=== PATIENT | female | born 1935 | race Caucasian/White ===

== ENCOUNTER 2019-06-08 18:51 | Inpatient (IN) | payer MEDICARE, OTHER ==
[~2019-06-08] VITALS: Ht 162.6 cm; Wt 64.0 kg
--- NOTE | 2019-06-08 19:02 | PHYS DOC ---
Past Medical History Critical Care Time Critical care time was 35 minutes exclusive of procedures. Attending Signature I have participated in the care of this patient and I have reviewed and agree with all pertinent clinical information above including history, exam, and recommendations. Adult General Chief Complaint Chief Complaint: NEAR SYNCOPE HPI HPI 83-year-old female presents to the emergency department today after near syncopal episode at pelvic rest room. Patient states she was in [employer] she states she had to go to the bathroom attempting a bowel movement became lightheaded and subsequently fell to the ground nauseous and vomiting. She does have intermittent shortness of breath. Patient states she did have a syncopal episode within one week ago. She did work with her appian bpm developer was started on any medications of discontinued per cardiology. She follows with [facility] and primary care physician in [place]. Nothing makes her symptoms worse, nothing makes her symptoms better. She states she is not nauseas at this time. Review of Systems Review of Systems Constitutional: Denies fever or chills [] Respiratory: intermittent shortness of breath [] Cardiovascular: No additional information not addressed in HPI [] GI: Denies abdominal pain, + nausea, vomiting, no bloody stools or diarrhea [] : Denies dysuria or hematuria [] Integument: Denies rash or skin lesions [] Neurologic: Denies headache, focal weakness or sensory changes [] All other systems were reviewed and found to be within normal limits, except as documented in this note. Current Medications Current Medications Current Medications Medications (Trade) Dose Ordered Sig/Kennedy Start Time Stop Time Status Last Admin Dose Admin Ondansetron HCl (Zofran) 4 mg 1X ONCE 06/08/19 20:30 06/08/19 20:31 DC 06/08/19 20:27 4 MG Allergies Allergies Allergies Coded Allergies Type Severity Reaction Last Updated Verified No Known Drug Allergies 06/08/19 No Physical Exam Physical Exam Constitutional: Well developed, well nourished, no acute distress, non-toxic appearance. [] HENT: Normocephalic, atraumatic, bilateral external ears normal, oropharynx moist, no oral exudates, nose normal. [] Eyes: PERRLA, EOMI, conjunctiva normal, no discharge. [] Cardiovascular:Heart rate regular rhythm, no murmur [] Lungs & Thorax: Bilateral breath sounds clear to auscultation [] Abdomen: Bowel sounds normal, soft, no tenderness, no masses, no pulsatile masses. [] Skin: Warm, dry, no erythema, no rash. [] Back: No tenderness, no CVA tenderness. [] Extremities: No tenderness, no edema. [] Neurologic: Alert and oriented X 3, no focal deficits noted. [] Psychologic: Affect normal, judgement normal, mood normal. [] Current Patient Data Vital Signs Vital Signs Date Time Temp Pulse Resp B/P (MAP) Pulse Ox O2 Delivery O2 Flow Rate FiO2 06/08/19 20:49 71 190/83 (118) 96 Room Air 06/08/19 19:00 98.1 16 98.1 Lab Values Laboratory Tests Test 06/08/19 19:10 06/08/19 20:10 Stool Occult Blood Positive (NEG) White Blood Count 21.6 x10^3/uL (4.0-11.0) H Red Blood Count 4.29 x10^6/uL (3.50-5.40) Hemoglobin 12.7 g/dL (12.0-15.5) Hematocrit 38.9 % (36.0-47.0) Mean Corpuscular Volume 91 fL (79-100) Mean Corpuscular Hemoglobin 30 pg (25-35) Mean Corpuscular Hemoglobin Concent 33 g/dL (31-37) Red Cell Distribution Width 14.5 % (11.5-14.5) Platelet Count 297 x10^3/uL (140-400) Neutrophils (%) (Auto) 83 % (31-73) H Lymphocytes (%) (Auto) 7 % (24-48) L Monocytes (%) (Auto) 8 % (0-9) Eosinophils (%) (Auto) 1 % (0-3) Basophils (%) (Auto) 1 % (0-3) Neutrophils # (Auto) 18.0 x10^3/uL (1.8-7.7) H Lymphocytes # (Auto) 1.6 x10^3/uL (1.0-4.8) Monocytes # (Auto) 1.8 x10^3/uL (0.0-1.1) H Eosinophils # (Auto) 0.1 x10^3/uL (0.0-0.7) Basophils # (Auto) 0.1 x10^3/uL (0.0-0.2) Segmented Neutrophils % 82 % (35-66) H Band Neutrophils % 5 % (0-9) Lymphocytes % 3 % (24-48) L Monocytes % 9 % (0-10) Eosinophils % 1 % (0-5) Platelet Estimate Adequate (ADEQUATE) D-Dimer (Jessica) > 20.00 ug/mlFEU Sodium Level 142 mmol/L (136-145) Potassium Level 3.6 mmol/L (3.5-5.1) Chloride Level 104 mmol/L (98-107) Carbon Dioxide Level 30 mmol/L (21-32) Anion Gap 8 (6-14) Blood Urea Nitrogen 17 mg/dL (7-20) Creatinine 0.9 mg/dL (0.6-1.0) Estimated GFR (Cockcroft-Gault) 59.9 BUN/Creatinine Ratio 19 (6-20) Glucose Level 132 mg/dL (70-99) H Lactic Acid Level 1.3 mmol/L (0.4-2.0) Calcium Level 9.7 mg/dL (8.5-10.1) Magnesium Level 2.5 mg/dL (1.8-2.4) H Total Bilirubin 0.5 mg/dL (0.2-1.0) Aspartate Amino Transferase (AST) 24 U/L (15-37) Alanine Aminotransferase (ALT) 20 U/L (14-59) Alkaline Phosphatase 94 U/L (46-116) Troponin I Quantitative < 0.017 ng/mL (0.000-0.055) Total Protein 7.2 g/dL (6.4-8.2) Albumin 3.4 g/dL (3.4-5.0) Albumin/Globulin Ratio 0.9 (1.0-1.7) L Laboratory Tests 06/08/19 20:10 Laboratory Tests 06/08/19 20:10 EKG EKG EKG reviewed heart rate 65, no evidence of acute ST elevation SD appreciated, nonurgent EKG. Interpretation time 1948[] Radiology/Procedures Radiology/Procedures [facility] [address] [place] [address] IMAGING REPORT Signed PATIENT: SHAHRZDA BAY ACCOUNT: [id number] : 1935 LOCATION: ER AGE: 83 SEX: F EXAM STATUS: REG ER ORD. PHYSICIAN: DENISE GONZALES MD REASON: syncope, unknown LOC PROCEDURE: CT HEAD WO CONTRAST Exam: CT head INDICATION: Syncope TECHNIQUE: Sequential axial images through the head were obtained without the administration of IV contrast. Comparisons: None FINDINGS: No focal parenchymal lesion or hemorrhage is identified. There is no midline shift or sulcal effacement. Extensive patchy hypodensity within the periventricular and subcortical white matter. No acute vascular territory infarction is identified. De Leon-white distinction is preserved. The ventricular system is within normal limits without compression hydrocephalus. The basal cisterns are well maintained. The visualized portions of the paranasal sinuses and mastoid air cells are well-pneumatized. No acute fractures. IMPRESSION: Findings a small vessel ischemic change, technically age indeterminate without prior imaging. Exposure: One or more of the following in the visualized dose reduction techniques were utilized for this examination: 1. Automated exposure control 2. Adjustment of the MA and/or KV according to patient size Use of iterative of reconstructive technique Electronically signed by: Monik Vargas MD (06/08/2019 8:06 PM) [facility] DICTATED and SIGNED BY: MONIK VARGAS MD DATE: 06/08/192005 [] [facility] [address] [place] [address] IMAGING REPORT Signed PATIENT: SHAHRZAD BAY ACCOUNT: [id number] : 1935 LOCATION: ER AGE: 83 SEX: F EXAM STATUS: REG ER ORD. PHYSICIAN: DENISE GONZALES MD REASON: Elevated ddimer syncope PROCEDURE: CT ANGIOGRAPHY CHEST Exam: CT chest with contrast INDICATION: Syncope TECHNIQUE: Sequential axial images through the chest obtained following the administration of 75 mL of Omni 350 IV contrast. Sagittal and coronal reformatted images were reconstructed from the axial data and reviewed. 3-D reformatted images were reconstructed from the axial data and reviewed. Comparisons: None FINDINGS: Visualized portions of the thyroid are unremarkable. No enlarged mediastinal lymph nodes. Heart size is normal. No pericardial effusion. Mild coronary artery calcifications postsurgical changes of CABG. Thoracic aorta has a normal course and caliber. Pulmonary artery is not enlarged. No pulmonary embolus identified within the main, lobar or segmental pulmonary arteries. Airways are patent. No consolidation or pneumothorax. No suspicious lung nodules are identified. There are strandy opacities at the dependent portion of the lung bases, likely representing atelectasis. Visualized lung bases are clear. Small hiatal hernia. No suspicious osseous lesions or acute fractures. IMPRESSION: 1. No pulmonary embolus identified within the main, lobar or segmental pulmonary 2. Small hiatal hernia. Exposure: One or more of the following in the visualized dose reduction techniques were utilized for this examination: 1. Automated exposure control 2. Adjustment of the MA and/or KV according to patient size 3. Use of iterative of reconstructive technique Electronically signed by: Monik Vargas MD (06/08/2019 10:23 PM) [facility] DICTATED and SIGNED BY: MONIK VARGAS MD DATE: 06/08/192222 Course & Med Decision Making Course & Med Decision Making Pertinent Labs and Imaging studies reviewed. (See chart for details) []83-year-old female presents to the emergency department today after near syncopal episode at pelvic rest room. Patient states she was in [employer] she states she had to go to the bathroom attempting a bowel movement became lightheaded and subsequently fell to the ground nauseous and vomiting. She does have intermittent shortness of breath. Patient states she did have a syncopal episode within one week ago. She did work with her appian bpm developer was started on any medications of discontinued per cardiology. She follows with [facility] and primary care physician in [place]. Nothing makes her symptoms worse, nothing makes her symptoms better. She states she is not nauseas at this time. During ER eval, patient had 3 large bloody bowel movements Discussed with DR. Farrar ([id number]) - recommends tagged RBC scan Labs reviewed - WBC 21.6, hgb 12.7, abx initiated (cipro/flagyl) Plan admit and follow up with GI Discussed admit with DR. Dennison CTA negative for PE CT head negative Nuc med tagged scan pending Dragon Disclaimer Dragon Disclaimer This electronic medical record was generated, in whole or in part, using a voice recognition dictation system. Departure Departure Impression: Primary Impression: Acute lower GI bleeding Additional Impression: Diverticulitis Disposition: 09 ADMITTED INPATIENT Admitting Physician: TINO Condition: STABLE Problem Qualifiers DENISE GONZALES MD Jun 08, 2019 19:02
--- NOTE | 2019-06-08 20:09 | RAD ---
Exam: CT head INDICATION: Syncope TECHNIQUE: Sequential axial images through the head were obtained without the administration of IV contrast. Comparisons: None FINDINGS: No focal parenchymal lesion or hemorrhage is identified. There is no midline shift or sulcal effacement. Extensive patchy hypodensity within the periventricular and subcortical white matter. No acute vascular territory infarction is identified. De Leon-white distinction is preserved. The ventricular system is within normal limits without compression hydrocephalus. The basal cisterns are well maintained. The visualized portions of the paranasal sinuses and mastoid air cells are well-pneumatized. No acute fractures. IMPRESSION: Findings a small vessel ischemic change, technically age indeterminate without prior imaging. Exposure: One or more of the following in the visualized dose reduction techniques were utilized for this examination: 1. Automated exposure control 2. Adjustment of the MA and/or KV according to patient size Use of iterative of reconstructive technique Electronically signed by: Monik Swan MD (06/08/2019 8:06 PM) [facility]
[2019-06-08 20:13] LABS: FECAL OB PT POSITIVE (NEG)
[2019-06-08 20:23] LABS: BASO # 0.1 x10^3/uL (0.0-0.2); BASO % 1 % (0-3); EOS # 0.1 x10^3/uL (0.0-0.7); EOS % 1 % (0-3); HEMATOCRIT 38.9 % (36.0-47.0); HEMOGLOBIN 12.7 g/dL (12.0-15.5); LYMPH # 1.6 x10^3/uL (1.0-4.8); LYMPH % 7 % (24-48); MEAN CORPUSCULAR HEMOGLOBIN 30 pg (25-35); MEAN CORPUSCULAR HGB CONC 33 g/dL (31-37); MEAN CORPUSCULAR VOLUME 91 fL (79-100); MONO # 1.8 x10^3/uL (0.0-1.1); MONO % 8 % (0-9); NEUT % 83 % (31-73); PLATELET COUNT 297 x10^3/uL (140-400); RED BLOOD COUNT 4.29 x10^6/uL (3.50-5.40); RED CELL DISTRIBUTION WIDTH 14.5 % (11.5-14.5); WHITE BLOOD COUNT 21.6 x10^3/uL (4.0-11.0)
[2019-06-08] MEDS ORDERED: ONDANSETRON PF 4 MG/2 ML VIAL. IV ONE (20:30)
[2019-06-08 20:34] LABS: CALCIUM 9.7 mg/dL (8.5-10.1); CREATININE 0.9 mg/dL (0.6-1.0); GFR 59.9; POTASSIUM 3.6 mmol/L (3.5-5.1)
[2019-06-08 20:40] LABS: ALBUMIN 3.4 g/dL (3.4-5.0); ALBUMIN/GLOBULIN RATIO 0.9 (1.0-1.7); MAGNESIUM 2.5 mg/dL (1.8-2.4); TOTAL BILIRUBIN 0.5 mg/dL (0.2-1.0); TOTAL PROTEIN 7.2 g/dL (6.4-8.2)
[2019-06-08] MEDS ORDERED: ONDANSETRON PF 4 MG/2 ML VIAL. IV PRN (21:15)
[2019-06-08] MEDS ORDERED: MORPHINE SULFATE 2 MG/ML VIAL. IV PRN (21:15)
[2019-06-08 21:20] LABS: % BANDS 5 % (0-9); % EOS 1 % (0-5); % LYMPHS 3 % (24-48); % MONOS 9 % (0-10); % SEGS 82 % (35-66); PLT ESTIMATE ADEQUATE (ADEQUATE)
[2019-06-08] MEDS ORDERED: IV DEXTROSE 5 %-0.45 % NACL 1,000 ML IV ONE (21:30)
[2019-06-08] MEDS ORDERED: CONTRAST GIVEN. MC PRN (21:45)
[2019-06-08] MEDS ORDERED: IOHEXOL 350 MG/ML 100 ML VIAL. IV ONE (21:45)
[2019-06-08] MEDS ORDERED: CIPROFLOXACIN 400MG PREMIX 200 ML IV ONE (21:45)
[2019-06-08] MEDS ORDERED: HEPARIN for NUC MED 500 UNIT/5 ML DISP.SYRIN. IV ONE (22:15)
--- NOTE | 2019-06-08 22:26 | RAD ---
Exam: CT chest with contrast INDICATION: Syncope TECHNIQUE: Sequential axial images through the chest obtained following the administration of 75 mL of Omni 350 IV contrast. Sagittal and coronal reformatted images were reconstructed from the axial data and reviewed. 3-D reformatted images were reconstructed from the axial data and reviewed. Comparisons: None FINDINGS: Visualized portions of the thyroid are unremarkable. No enlarged mediastinal lymph nodes. Heart size is normal. No pericardial effusion. Mild coronary artery calcifications postsurgical changes of CABG. Thoracic aorta has a normal course and caliber. Pulmonary artery is not enlarged. No pulmonary embolus identified within the main, lobar or segmental pulmonary arteries. Airways are patent. No consolidation or pneumothorax. No suspicious lung nodules are identified. There are strandy opacities at the dependent portion of the lung bases, likely representing atelectasis. Visualized lung bases are clear. Small hiatal hernia. No suspicious osseous lesions or acute fractures. IMPRESSION: 1. No pulmonary embolus identified within the main, lobar or segmental pulmonary 2. Small hiatal hernia. Exposure: One or more of the following in the visualized dose reduction techniques were utilized for this examination: 1. Automated exposure control 2. Adjustment of the MA and/or KV according to patient size 3. Use of iterative of reconstructive technique Electronically signed by: Monik Swan MD (06/08/2019 10:23 PM) [facility] [place]
[2019-06-08 23:30] VITALS: BP 185/85
--- NOTE | 2019-06-08 23:30 | NUR ---
The patient, SHAHRZAD BAY, 83 y/o, F admitted by NUNU CANALES III, DO, was given written information regarding hospital policies, unit procedures and contact persons. Valuables were checked and left in the room.
--- NOTE | 2019-06-08 23:36 | RAD ---
Clinical History: GI bleed 26.1 mCi Tc-99 m labeled red blood cells were administered via ultratag kit and spot view of the abdomen and pelvis was obtained by gamma camera for a nuclear medicine tagged red blood cell GI bleed study. There is activity seen within the vascular pool. There is no accumulation or propagation of activity to suggest an active bleed. Impression: Negative examination. Electronically signed by: Ty Dean III, MD (06/08/2019 11:33 PM) [facility]
[2019-06-09] VITALS (8 sets, daily range): BP systolic 136–213; BP diastolic 54–97
--- NOTE | 2019-06-09 00:50 | EKG ---
[facility] [address] [place] [address] Test Date: 2019-06-08 Test Time: 19:25:48 Pat Name: SHAHRZAD BAY Department: Room: Gender: F [employer]: : 1935 Requested By: DENISE GONZALES Order Number: [id number] Reading MD: Measurements Intervals Chloride Rate: 65 P: -163 IA: 178 QRS: -135 QRSD: 134 T: -168 QT: 424 QTc: 442 Interpretive Statements SINUS RHYTHM ABNORMAL RIGHT SUPERIOR AXIS DEVIATION NON SPECIFIC INTRAVENTRICULAR BLOCK RVH WITH REPOLARIZATION ABNORMALITY QRS(T) CONTOUR ABNORMALITY CONSIDER HIGH LATERAL INFARCT ABNORMAL ECG RI6.01 No previous ECG available for comparison
[2019-06-09 01:03] LABS: HEMATOCRIT 38.3 % (36.0-47.0); HEMOGLOBIN 12.4 g/dL (12.0-15.5)
[2019-06-09] MEDS ORDERED: amLODIPine BESYLATE 10 MG TABLET PO ONE (01:45)
[2019-06-09] MEDS ORDERED: ONDANSETRON PF 4 MG/2 ML VIAL. IV PRN (01:45)
[2019-06-09] MEDS ORDERED: cloNIDine HCL 0.1 MG TABLET PO ONE (02:15)
[2019-06-09] MEDS ORDERED: PROCHLORPERAZINE 10 MG/2 ML VIAL. IV PRN (02:15)
[2019-06-09] MEDS: ACETAMINOPHEN 325 MG TABLET. PO PRN ×2 (05:07→13:29)
[2019-06-09 05:39] LABS: BASO % 0 % (0-3); EOS % 0 % (0-3); HEMATOCRIT 38.4 % (36.0-47.0); HEMOGLOBIN 12.7 g/dL (12.0-15.5); LYMPH # 0.9 x10^3/uL (1.0-4.8); LYMPH % 7 % (24-48); MEAN CORPUSCULAR HEMOGLOBIN 30 pg (25-35); MEAN CORPUSCULAR HGB CONC 33 g/dL (31-37); MEAN CORPUSCULAR VOLUME 90 fL (79-100); MONO # 0.7 x10^3/uL (0.0-1.1); MONO % 5 % (0-9); NEUT # 11.5 x10^3/uL (1.8-7.7); NEUT % 88 % (31-73); PLATELET COUNT 281 x10^3/uL (140-400); RED BLOOD COUNT 4.27 x10^6/uL (3.50-5.40); RED CELL DISTRIBUTION WIDTH 14.2 % (11.5-14.5); WHITE BLOOD COUNT 13.1 x10^3/uL (4.0-11.0)
[2019-06-09 06:16] LABS: ALBUMIN 3.1 g/dL (3.4-5.0); ALBUMIN/GLOBULIN RATIO 0.9 (1.0-1.7); CALCIUM 8.8 mg/dL (8.5-10.1); CREATININE 0.5 mg/dL (0.6-1.0); GFR 118.1; POTASSIUM 3.1 mmol/L (3.5-5.1); TOTAL BILIRUBIN 0.5 mg/dL (0.2-1.0); TOTAL PROTEIN 6.7 g/dL (6.4-8.2)
[2019-06-09] MEDS ORDERED: amLODIPine BESYLATE 10 MG TABLET PO SCH (09:00)
[2019-06-09] MEDS ORDERED: CIPROFLOXACIN 400MG PREMIX 200 ML IV ONE (09:00)
[2019-06-09] MEDS ORDERED: cloNIDine HCL 0.1 MG TABLET PO SCH (09:00)
--- NOTE | 2019-06-09 11:21 | NUR ---
SW following pt for dc planning. Chart reviewed and discussed with RN. Pt lives at home with spouse. No notes to review at this time. SW will be available as needed.
--- NOTE | 2019-06-09 11:22 | HP ---
ADMIT DATE: 06/09/2019 CHIEF COMPLAINT: Near syncope. HISTORY OF PRESENT ILLNESS: The patient is a pleasant 83-year-old female who had a near syncopal episode. Apparently, her pressures have been fluctuating quite a bit over the past few weeks. She has been to a couple of doctors. She normally goes to [facility]. She has a history of bypass surgery. While in the ER, she is also noted to have a mild GI bleed with some blood in her stool. She has got a slight white count of 13 and she also has a UTI with leukocyte esterase positive urine with too numerous to count white cells. She also has low potassium. We are going to admit the patient, give her IV antibiotics and fluids, and consult GI and Cardiology. PAST MEDICAL HISTORY: Coronary artery disease with a previous bypass surgery. ALLERGIES: None. FAMILY HISTORY: Coronary artery disease. SOCIAL HISTORY: She is . She does not drink, smoke or take drugs. MEDICATIONS: Reviewed, please refer to the MRAD. REVIEW OF SYSTEMS: GENERAL: No history of weight change, weakness or fevers. SKIN: No bruising, hair changes or rashes. EYES: No blurred, double or loss of vision. NOSE AND THROAT: No history of nosebleeds, hoarseness or sore throat. HEART: No history of palpitations, chest pain or shortness of breath on exertion. LUNGS: Denies cough, hemoptysis, wheezing or shortness of breath. GASTROINTESTINAL: She complains of some blood in her stool. GENITOURINARY: No history of frequency, urgency, hesitancy or nocturia. NEUROLOGIC: She complains of weakness, intermittent syncope and blood pressures fluctuating. PSYCHIATRIC: No history of panic, anxiety or depression. ENDOCRINE: No history of heat or cold intolerance, polyuria or polydipsia. EXTREMITIES: Denies muscle weakness, joint pain, pain on walking or stiffness. PHYSICAL EXAMINATION: VITALS: Within normal limits and are stable. GENERAL: No apparent distress. Alert and oriented. HEENT: Head is normocephalic, atraumatic, pupils were equally round and reactive to light and accommodation. NECK: Supple, no JVD, no thyromegaly was noted. LUNGS: Clear to auscultation in all lung carpenter without rhonchi or wheezing. HEART: RRR, S1, S2 present. Peripheral pulses intact, no obvious murmurs were noted. ABDOMEN: Soft, nontender. Positive bowel sounds no organomegaly, normal bowel sounds. EXTREMITIES: Without any cyanosis, clubbing, or edema. Pedal pulses intact, Homans sign is negative. NEUROLOGIC: Normal speech, normal tone. A & O x3, moves all extremities, no obvious focal deficits. PSYCHIATRIC: Normal affect, normal mood. Stable. SKIN: No ulcerations or rashes, good skin turgor, no jaundice. VASCULAR: Good capillary refill, neurovascular bundle appears to be intact. LABORATORY DATA: Hemoglobin is 12.7. White count is 21.6, it went down to 13 overnight. Electrolytes; sodium 140, potassium 3.1, chloride 103, bicarbonate 27, BUN 14, creatinine 0.5, glucose 136. Troponin is 0. D-dimer was greater than 20. Stool occult blood was positive. ASSESSMENT AND PLAN: Syncope, GI bleed, leukocytosis, hypokalemia, elevated D-dimer. The patient is being admitted. We will trend her hemoglobin, IV fluids. She also has a UTI, so we will give her IV antibiotics and IV fluids. We are currently giving her a combination of Cipro and Flagyl because we are concerned she could have colitis as well. Frequent labs. DVT prophylaxis. Full code. PROGNOSIS: Guarded. NUNU CANALES DO DR: FIDEL/loyd JOB#: [id number] / [id number]
[2019-06-09] MEDS ORDERED: POTASSIUM CHLORIDE 20 MEQ TABLET.ER. PO ONE (11:45)
--- NOTE | 2019-06-09 12:44 | PDOC2 ---
CONSULT Date of Consult Date of Consult DATE: 06/09/19 TIME: 12:43 Reason for Consult Reason for Consult: Rectal bleed/hx diverticulosis Current Problem List Problem List Problems Medical Problems: (1) Diverticulitis Status: Acute (2) Near syncope Status: Acute Current Medications Current Medications Current Medications Ondansetron HCl (Zofran) 4 mg 1X ONCE IV Last administered on 06/08/19at 20:27; Start 06/08/19 at 20:30; Stop 06/08/19 at 20:31; Status DC Metronidazole 100 ml @ 100 mls/hr Q8HRS IV Last administered on 06/09/19at 06:05; Start 06/09/19 at 06:00 Ciprofloxacin/ Dextrose 200 ml @ 200 mls/hr BID ONCE IV Last administered on 06/09/19at 10:06; Start 06/09/19 at 09:00; Stop 06/09/19 at 09:59; Status DC Ondansetron HCl (Zofran) 4 mg PRN Q8HRS PRN IV NAUSEA/VOMITING Last administered on 06/08/19at 23:16; Start 06/08/19 at 21:15; Stop 06/09/19 at 01:41; Status DC Morphine Sulfate (Morphine Sulfate) 2 mg PRN Q2HR PRN IV PAIN; Start 06/08/19 at 21:15; Stop 06/09/19 at 21:14 Dextrose/Sodium Chloride 1,000 ml @ 75 mls/hr 1X ONCE IV Last administered on 06/08/19at 22:34; Start 06/08/19 at 21:30; Stop 06/09/19 at 10:49; Status DC Ciprofloxacin/ Dextrose 200 ml @ 200 mls/hr ONCE ONCE IV Last administered on 06/08/19at 22:34; Start 06/08/19 at 21:45; Stop 06/08/19 at 22:44; Status DC Metronidazole 100 ml @ 100 mls/hr ONCE ONCE IV Last administered on 06/09/19at 00:06; Start 06/08/19 at 21:45; Stop 06/08/19 at 22:44; Status DC Iohexol (Omnipaque 350 Mg/ml) 100 ml 1X ONCE IV Last administered on 06/08/19at 22:12; Start 06/08/19 at 21:45; Stop 06/08/19 at 21:46; Status DC Info (CONTRAST GIVEN -- Rx MONITORING) 1 each PRN DAILY PRN MC SEE COMMENTS; Start 06/08/19 at 21:45; Stop 06/10/19 at 21:44 Heparin Sodium (Porcine) (HEPARIN for NUC MED) 100 unit 1X ONCE IV ; Start 06/08/19 at 22:15; Stop 06/08/19 at 22:16; Status DC Ondansetron HCl (Zofran) 4 mg PRN Q4HRS PRN IV NAUSEA/VOMITING, 1ST CHOICE Last administered on 06/09/19at 05:07; Start 06/09/19 at 01:45 Amlodipine Besylate (Norvasc) 10 mg DAILY PO ; Start 06/09/19 at 09:00; Stop 06/09/19 at 02:12; Status DC Amlodipine Besylate (Norvasc) 10 mg 1X ONCE PO ; Start 06/09/19 at 01:45; Stop 06/09/19 at 02:12; Status DC Clonidine HCl (Catapres) 0.1 mg TID PO ; Start 06/09/19 at 09:00 Clonidine HCl (Catapres) 0.1 mg 1X ONCE PO ; Start 06/09/19 at 02:15; Stop 06/09/19 at 02:16; Status DC Prochlorperazine Edisylate (Compazine) 10 mg PRN Q8HRS PRN IV NAUSEA/VOMITING, 2ND CHOICE; Start 06/09/19 at 02:15 Acetaminophen (Tylenol) 650 mg PRN Q6HRS PRN PO headache Last administered on 06/09/19at 05:07; Start 06/09/19 at 04:45 Potassium Chloride (Klor-Con) 40 meq 1X ONCE PO ; Start 06/09/19 at 11:45; Stop 06/09/19 at 11:46; Status DC Allergies Allergies: Coded Allergies: No Known Drug Allergies (Unverified , 06/08/19) Vitals VITALS Vital Signs Date Time Temp Pulse Resp B/P (MAP) Pulse Ox O2 Delivery O2 Flow Rate FiO2 06/09/19 11:00 98.3 92 18 200/95 (130) 98 Room Air 98.3 Labs Labs Laboratory Tests Test 06/08/19 19:10 06/08/19 20:10 06/09/19 00:20 06/09/19 04:41 Stool Occult Blood Positive (NEG) White Blood Count 21.6 x10^3/uL (4.0-11.0) 13.1 x10^3/uL (4.0-11.0) Red Blood Count 4.29 x10^6/uL (3.50-5.40) 4.27 x10^6/uL (3.50-5.40) Hemoglobin 12.7 g/dL (12.0-15.5) 12.4 g/dL (12.0-15.5) 12.7 g/dL (12.0-15.5) Hematocrit 38.9 % (36.0-47.0) 38.3 % (36.0-47.0) 38.4 % (36.0-47.0) Mean Corpuscular Volume 91 fL (79-100) 90 fL (79-100) Mean Corpuscular Hemoglobin 30 pg (25-35) 30 pg (25-35) Mean Corpuscular Hemoglobin Concent 33 g/dL (31-37) 33 g/dL (31-37) Red Cell Distribution Width 14.5 % (11.5-14.5) 14.2 % (11.5-14.5) Platelet Count 297 x10^3/uL (140-400) 281 x10^3/uL (140-400) Neutrophils (%) (Auto) 83 % (31-73) 88 % (31-73) Lymphocytes (%) (Auto) 7 % (24-48) 7 % (24-48) Monocytes (%) (Auto) 8 % (0-9) 5 % (0-9) Eosinophils (%) (Auto) 1 % (0-3) 0 % (0-3) Basophils (%) (Auto) 1 % (0-3) 0 % (0-3) Neutrophils # (Auto) 18.0 x10^3/uL (1.8-7.7) 11.5 x10^3/uL (1.8-7.7) Lymphocytes # (Auto) 1.6 x10^3/uL (1.0-4.8) 0.9 x10^3/uL (1.0-4.8) Monocytes # (Auto) 1.8 x10^3/uL (0.0-1.1) 0.7 x10^3/uL (0.0-1.1) Eosinophils # (Auto) 0.1 x10^3/uL (0.0-0.7) 0.0 x10^3/uL (0.0-0.7) Basophils # (Auto) 0.1 x10^3/uL (0.0-0.2) 0.0 x10^3/uL (0.0-0.2) Segmented Neutrophils % 82 % (35-66) Band Neutrophils % 5 % (0-9) Lymphocytes % 3 % (24-48) Monocytes % 9 % (0-10) Eosinophils % 1 % (0-5) Platelet Estimate Adequate (ADEQUATE) D-Dimer (Jessica) > 20.00 ug/mlFEU Sodium Level 142 mmol/L (136-145) 140 mmol/L (136-145) Potassium Level 3.6 mmol/L (3.5-5.1) 3.1 mmol/L (3.5-5.1) Chloride Level 104 mmol/L (98-107) 103 mmol/L (98-107) Carbon Dioxide Level 30 mmol/L (21-32) 27 mmol/L (21-32) Anion Gap 8 (6-14) 10 (6-14) Blood Urea Nitrogen 17 mg/dL (7-20) 14 mg/dL (7-20) Creatinine 0.9 mg/dL (0.6-1.0) 0.5 mg/dL (0.6-1.0) Estimated GFR (Cockcroft-Gault) 59.9 118.1 BUN/Creatinine Ratio 19 (6-20) 28 (6-20) Glucose Level 132 mg/dL (70-99) 136 mg/dL (70-99) Lactic Acid Level 1.3 mmol/L (0.4-2.0) Calcium Level 9.7 mg/dL (8.5-10.1) 8.8 mg/dL (8.5-10.1) Magnesium Level 2.5 mg/dL (1.8-2.4) Total Bilirubin 0.5 mg/dL (0.2-1.0) 0.5 mg/dL (0.2-1.0) Aspartate Amino Transf (AST/SGOT) 24 U/L (15-37) 22 U/L (15-37) Alanine Aminotransferase (ALT/SGPT) 20 U/L (14-59) 16 U/L (14-59) Alkaline Phosphatase 94 U/L (46-116) 88 U/L (46-116) Troponin I Quantitative < 0.017 ng/mL (0.000-0.055) Total Protein 7.2 g/dL (6.4-8.2) 6.7 g/dL (6.4-8.2) Albumin 3.4 g/dL (3.4-5.0) 3.1 g/dL (3.4-5.0) Albumin/Globulin Ratio 0.9 (1.0-1.7) 0.9 (1.0-1.7) Laboratory Tests Test 06/08/19 19:10 06/08/19 20:10 06/09/19 00:20 06/09/19 04:41 Stool Occult Blood Positive (NEG) White Blood Count 21.6 x10^3/uL (4.0-11.0) 13.1 x10^3/uL (4.0-11.0) Red Blood Count 4.29 x10^6/uL (3.50-5.40) 4.27 x10^6/uL (3.50-5.40) Hemoglobin 12.7 g/dL (12.0-15.5) 12.4 g/dL (12.0-15.5) 12.7 g/dL (12.0-15.5) Hematocrit 38.9 % (36.0-47.0) 38.3 % (36.0-47.0) 38.4 % (36.0-47.0) Mean Corpuscular Volume 91 fL (79-100) 90 fL (79-100) Mean Corpuscular Hemoglobin 30 pg (25-35) 30 pg (25-35) Mean Corpuscular Hemoglobin Concent 33 g/dL (31-37) 33 g/dL (31-37) Red Cell Distribution Width 14.5 % (11.5-14.5) 14.2 % (11.5-14.5) Platelet Count 297 x10^3/uL (140-400) 281 x10^3/uL (140-400) Neutrophils (%) (Auto) 83 % (31-73) 88 % (31-73) Lymphocytes (%) (Auto) 7 % (24-48) 7 % (24-48) Monocytes (%) (Auto) 8 % (0-9) 5 % (0-9) Eosinophils (%) (Auto) 1 % (0-3) 0 % (0-3) Basophils (%) (Auto) 1 % (0-3) 0 % (0-3) Neutrophils # (Auto) 18.0 x10^3/uL (1.8-7.7) 11.5 x10^3/uL (1.8-7.7) Lymphocytes # (Auto) 1.6 x10^3/uL (1.0-4.8) 0.9 x10^3/uL (1.0-4.8) Monocytes # (Auto) 1.8 x10^3/uL (0.0-1.1) 0.7 x10^3/uL (0.0-1.1) Eosinophils # (Auto) 0.1 x10^3/uL (0.0-0.7) 0.0 x10^3/uL (0.0-0.7) Basophils # (Auto) 0.1 x10^3/uL (0.0-0.2) 0.0 x10^3/uL (0.0-0.2) Segmented Neutrophils % 82 % (35-66) Band Neutrophils % 5 % (0-9) Lymphocytes % 3 % (24-48) Monocytes % 9 % (0-10) Eosinophils % 1 % (0-5) Platelet Estimate Adequate (ADEQUATE) D-Dimer (Jessica) > 20.00 ug/mlFEU Sodium Level 142 mmol/L (136-145) 140 mmol/L (136-145) Potassium Level 3.6 mmol/L (3.5-5.1) 3.1 mmol/L (3.5-5.1) Chloride Level 104 mmol/L (98-107) 103 mmol/L (98-107) Carbon Dioxide Level 30 mmol/L (21-32) 27 mmol/L (21-32) Anion Gap 8 (6-14) 10 (6-14) Blood Urea Nitrogen 17 mg/dL (7-20) 14 mg/dL (7-20) Creatinine 0.9 mg/dL (0.6-1.0) 0.5 mg/dL (0.6-1.0) Estimated GFR (Cockcroft-Gault) 59.9 118.1 BUN/Creatinine Ratio 19 (6-20) 28 (6-20) Glucose Level 132 mg/dL (70-99) 136 mg/dL (70-99) Lactic Acid Level 1.3 mmol/L (0.4-2.0) Calcium Level 9.7 mg/dL (8.5-10.1) 8.8 mg/dL (8.5-10.1) Magnesium Level 2.5 mg/dL (1.8-2.4) Total Bilirubin 0.5 mg/dL (0.2-1.0) 0.5 mg/dL (0.2-1.0) Aspartate Amino Transf (AST/SGOT) 24 U/L (15-37) 22 U/L (15-37) Alanine Aminotransferase (ALT/SGPT) 20 U/L (14-59) 16 U/L (14-59) Alkaline Phosphatase 94 U/L (46-116) 88 U/L (46-116) Troponin I Quantitative < 0.017 ng/mL (0.000-0.055) Total Protein 7.2 g/dL (6.4-8.2) 6.7 g/dL (6.4-8.2) Albumin 3.4 g/dL (3.4-5.0) 3.1 g/dL (3.4-5.0) Albumin/Globulin Ratio 0.9 (1.0-1.7) 0.9 (1.0-1.7) Assessment/Plan Assessment/Plan Rectal bleed- most likely self limited diverticular bleed Plan serial cbcs advance diet release in am if blood counts stable in am. otherwise consider colonoscopy FUll note dictated DOUGLAS LANE MD Jun 09, 2019 12:44
--- NOTE | 2019-06-09 12:59 | PDOC2 ---
LES MURILLO CLERK SUPERVISOR 06/09/19 1259: CARDIAC CONSULT DATE OF CONSULT Date of Consult DATE: 06/09/19 TIME: 12:04 REASON FOR CONSULT Reason for Consult: Cardiac management REFERRING PHYSICIAN Referring Physician: Jesi SOURCE Source: Chart review, Patient HISTORY OF PRESENT ILLNESS HISTORY OF PRESENT ILLNESS This is a pleasant 83 yo female admitted for complains of almost passing out. Reports her BP has been significnatly elevated in the last month and [facility] [address] [facility] Reports that her medication was changed. A wekk ago she was standing up and was trying go through the medicine cabinet and she just felt dizzy and the next thing she knew was her looking down at her while she was on the floor. She then was brought to [facility] and no mention of any pacemaker at that time. Yesterday morning she started having shoulder discomfort and also pulsating feeling in her ear about the same symptoms she had when her coronary stent was placed 2 yrs ago but was later released in the afternoon. No further recurrence Her metoprolol was also changed to coreg. 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 She did get nauseated and vomited. She was brought to [facility] and while in ED she had diarrhea with mixed black and bloody stool accdg to her. No hx of VTE, arrhythmias nor CVA but significant for CAD. No exertinal CP nor ALVARADO. No changes to her activity tolerance. PAST MEDICAL HISTORY Cardiovascular: CAD, HTN, Hyperlipidemia Pulmonary: No pertinent hx CENTRAL NERVOUS SYSTEM: Other (No pertinent history) GI: No pertinent hx Heme/Onc: No pertinent hx Hepatobiliary: No pertinent hx Psych: No pertinent hx Musculoskeletal: Osteoarthritis Rheumatologic: No pertinent hx Infectious disease: No pertinent hx ENT: No pertinent hx Renal/: No pertinent hx, UTI Endocrine: No pertinent hx Dermatology: No pertinent hx PAST SURGICAL HISTORY Past Surgical History: Arthroscopy (right knee meniscus repair), CABG (24 yrs ago), Tonsillectomy, Hysterectomy, Other (PCI 2 stents prior to CABG then 3 stents totaal after CABG with last stent placed 2 yrs ago) FAMILY HISTORY Family History: Heart Disease (father) SOCIAL HISTORY Smoke: No ALCOHOL: none Drugs: None Lives: with Family CURRENT MEDICATIONS CURRENT MEDICATIONS Current Medications Medications (Trade) Dose Ordered Sig/Kennedy Route PRN Reason Start Time Stop Time Status Last Admin Dose Admin Ondansetron HCl (Zofran) 4 mg 1X ONCE IV 06/08/19 20:30 06/08/19 20:31 DC 06/08/19 20:27 Metronidazole 100 ml @ 100 mls/hr Q8HRS IV 06/09/19 06:00 06/09/19 06:05 Ciprofloxacin/ Dextrose 200 ml @ 200 mls/hr BID ONCE IV 06/09/19 09:00 06/09/19 09:59 DC 06/09/19 10:06 Ondansetron HCl (Zofran) 4 mg PRN Q8HRS PRN IV NAUSEA/VOMITING 06/08/19 21:15 06/09/19 01:41 DC 06/08/19 23:16 Dextrose/Sodium Chloride 1,000 ml @ 75 mls/hr 1X ONCE IV 06/08/19 21:30 06/09/19 10:49 DC 06/08/19 22:34 Ciprofloxacin/ Dextrose 200 ml @ 200 mls/hr ONCE ONCE IV 06/08/19 21:45 06/08/19 22:44 DC 06/08/19 22:34 Metronidazole 100 ml @ 100 mls/hr ONCE ONCE IV 06/08/19 21:45 06/08/19 22:44 DC 06/09/19 00:06 Iohexol (Omnipaque 350 Mg/ml) 100 ml 1X ONCE IV 06/08/19 21:45 06/08/19 21:46 DC 06/08/19 22:12 Ondansetron HCl (Zofran) 4 mg PRN Q4HRS PRN IV NAUSEA/VOMITING, 1ST CHOICE 06/09/19 01:45 06/09/19 05:07 Acetaminophen (Tylenol) 650 mg PRN Q6HRS PRN PO headache 06/09/19 04:45 06/09/19 05:07 ALLERGIES ALLERGIES: Coded Allergies: No Known Drug Allergies (Unverified , 06/08/19) ROS Review of System 14 point ROS evaluated with pertinent positives noted per HPI PHYSICAL EXAM General: Alert, Oriented X3, Cooperative, No acute distress HEENT: Atraumatic, Mucous membr. moist/pink, Other (caortid bruit mainly to right) Lungs: Clear to auscultation, Normal air movement Heart: Regular rate (SR), Normal S1, Normal S2, Other (3/6 systolic murmur to LEEANN border) Abdomen: Soft, No tenderness Extremities: No cyanosis, No edema Skin: No breakdown, No significant lesion Neuro: Normal speech, Sensation intact Psych/Mental Status: Mental status NL, Mood NL MUSCULOSKELETAL: Osteoarthritic changes both hands VITALS/I&O VITALS/I&O: Vital Signs Date Time Temp Pulse Resp B/P (MAP) Pulse Ox O2 Delivery O2 Flow Rate FiO2 06/09/19 07:00 98.1 94 18 191/97 (128) 95 Room Air 98.1 I & O 06/08/19 06/08/19 06/09/19 15:00 23:00 07:00 Intake Total 0 ml Output Total 1 ml Balance -1 ml LABS Lab: Laboratory Tests Test 06/08/19 19:10 06/08/19 20:10 06/09/19 00:20 06/09/19 04:41 Stool Occult Blood Positive (NEG) White Blood Count 21.6 x10^3/uL (4.0-11.0) H 13.1 x10^3/uL (4.0-11.0) H Red Blood Count 4.29 x10^6/uL (3.50-5.40) 4.27 x10^6/uL (3.50-5.40) Hemoglobin 12.7 g/dL (12.0-15.5) 12.4 g/dL (12.0-15.5) 12.7 g/dL (12.0-15.5) Hematocrit 38.9 % (36.0-47.0) 38.3 % (36.0-47.0) 38.4 % (36.0-47.0) Mean Corpuscular Volume 91 fL (79-100) 90 fL (79-100) Mean Corpuscular Hemoglobin 30 pg (25-35) 30 pg (25-35) Mean Corpuscular Hemoglobin Concent 33 g/dL (31-37) 33 g/dL (31-37) Red Cell Distribution Width 14.5 % (11.5-14.5) 14.2 % (11.5-14.5) Platelet Count 297 x10^3/uL (140-400) 281 x10^3/uL (140-400) Neutrophils (%) (Auto) 83 % (31-73) H 88 % (31-73) H Lymphocytes (%) (Auto) 7 % (24-48) L 7 % (24-48) L Monocytes (%) (Auto) 8 % (0-9) 5 % (0-9) Eosinophils (%) (Auto) 1 % (0-3) 0 % (0-3) Basophils (%) (Auto) 1 % (0-3) 0 % (0-3) Neutrophils # (Auto) 18.0 x10^3/uL (1.8-7.7) H 11.5 x10^3/uL (1.8-7.7) H Lymphocytes # (Auto) 1.6 x10^3/uL (1.0-4.8) 0.9 x10^3/uL (1.0-4.8) L Monocytes # (Auto) 1.8 x10^3/uL (0.0-1.1) H 0.7 x10^3/uL (0.0-1.1) Eosinophils # (Auto) 0.1 x10^3/uL (0.0-0.7) 0.0 x10^3/uL (0.0-0.7) Basophils # (Auto) 0.1 x10^3/uL (0.0-0.2) 0.0 x10^3/uL (0.0-0.2) Segmented Neutrophils % 82 % (35-66) H Band Neutrophils % 5 % (0-9) Lymphocytes % 3 % (24-48) L Monocytes % 9 % (0-10) Eosinophils % 1 % (0-5) Platelet Estimate Adequate (ADEQUATE) D-Dimer (Jessica) > 20.00 ug/mlFEU Sodium Level 142 mmol/L (136-145) 140 mmol/L (136-145) Potassium Level 3.6 mmol/L (3.5-5.1) 3.1 mmol/L (3.5-5.1) L Chloride Level 104 mmol/L (98-107) 103 mmol/L (98-107) Carbon Dioxide Level 30 mmol/L (21-32) 27 mmol/L (21-32) Anion Gap 8 (6-14) 10 (6-14) Blood Urea Nitrogen 17 mg/dL (7-20) 14 mg/dL (7-20) Creatinine 0.9 mg/dL (0.6-1.0) 0.5 mg/dL (0.6-1.0) L Estimated GFR (Cockcroft-Gault) 59.9 118.1 BUN/Creatinine Ratio 19 (6-20) 28 (6-20) H Glucose Level 132 mg/dL (70-99) H 136 mg/dL (70-99) H Lactic Acid Level 1.3 mmol/L (0.4-2.0) Calcium Level 9.7 mg/dL (8.5-10.1) 8.8 mg/dL (8.5-10.1) Magnesium Level 2.5 mg/dL (1.8-2.4) H Total Bilirubin 0.5 mg/dL (0.2-1.0) 0.5 mg/dL (0.2-1.0) Aspartate Amino Transferase (AST) 24 U/L (15-37) 22 U/L (15-37) Alanine Aminotransferase (ALT) 20 U/L (14-59) 16 U/L (14-59) Alkaline Phosphatase 94 U/L (46-116) 88 U/L (46-116) Troponin I Quantitative < 0.017 ng/mL (0.000-0.055) Total Protein 7.2 g/dL (6.4-8.2) 6.7 g/dL (6.4-8.2) Albumin 3.4 g/dL (3.4-5.0) 3.1 g/dL (3.4-5.0) L Albumin/Globulin Ratio 0.9 (1.0-1.7) L 0.9 (1.0-1.7) L Laboratory Tests 06/08/19 20:10 06/09/19 00:20 06/09/19 04:41 Laboratory Tests 06/08/19 20:10 06/09/19 04:41 ASSESSMENT/PLAN ASSESSMENT/PLAN 1. Presyncope: vasovagal induced by sensation to have BM as well as uncontrolled HTN 2. Recent syncope: a wk ago, was at [facility] had TTE at that time. Does not appear to be vasovagal. 3. HTN urgency 4. Severe DDIMER elevation: defer to PCP 5. Hypokalemia 6. GI bleed/diarrhea: witnessed bloody stool in ED. Hgb normal. 7. CAD; CABG 24 yrs ago, last stent placed 2 yrs ago. Clinically stable. 8. HLP Recommendations 1. Negative for CSH. Right side bruit, carotid doppler today. Consider for outpt event monitor, none placed in the past. 2. Repeat EKG. Will obtain TTE and EKG from [facility]. 3. GI consulted regarding GI bleed. Resume ASA once clear with GI 4. Restart home coreg and ARB. 5. Replace K 6. Hydralazine IV PRN MERY VILLEGAS MD 06/10/19 0742: CARDIAC CONSULT ASSESSMENT/PLAN ASSESSMENT/PLAN Late entry for 06/09/2019. Patient seen and examined. Agree with above nurse practitioner note. 83-year-old woman with fatigue without any obvious cardiac symptoms. Her blood pressure has been labile. GI workup is ongoing. Conservative management for now from a cardiac perspective. She does not appear to be suffering from any acute ischemic episodes. Blood pressure control. LES MURILLO APRN Jun 09, 2019 12:59 MERY VILLEGAS MD Jun 10, 2019 07:42
[2019-06-09] MEDS ORDERED: hydrALAZINE 20 MG/ML VIAL. IVP ONE (13:00)
[2019-06-09] MEDS ORDERED: hydrALAZINE 20 MG/ML VIAL. IVP PRN ×2 (13:00→18:30)
[2019-06-09 13:01] LABS: CHOLESTEROL/HDL RATIO 2.1
--- NOTE | 2019-06-09 13:26 | EKG ---
[facility] [address] [place] [address] Test Date: 2019-06-09 Test Time: 13:13:47 Pat Name: SHAHRZAD BAY Department: Room: [facility] Gender: F Roll Hand: : 1935 Requested By: LES MURILLO Order Number: [id number] Reading MD: Measurements Intervals [place] Rate: 93 P: -10 MN: 168 QRS: -56 QRSD: 132 T: -18 QT: 372 QTc: 465 Interpretive Statements SINUS RHYTHM ABNORMAL LEFT AXIS DEVIATION LEFT ANTERIOR FASCICULAR BLOCK NON SPECIFIC INTRAVENTRICULAR BLOCK RVH WITH REPOLARIZATION ABNORMALITY QRS(T) CONTOUR ABNORMALITY CONSIDER ANTEROLATERAL MYOCARDIAL DAMAGE ABNORMAL ECG RI6.01 Unconfirmed report No previous ECG available for comparison
[2019-06-09 13:35] LABS: PROTHROMBIN TIME PATIENT 13.2 SEC (11.7-14.0)
[2019-06-09] MEDS: LOSARTAN POTASSIUM 50 MG TABLET. PO SCH (14:01)
--- NOTE | 2019-06-09 14:26 | PDOC ---
Provider Note Provider Note Hem-Onc consult. Elevated d-dimer due to GI bleed. Fibrinogen is normal, no fibrinolysis. See dictation [id number] BOBBY MURPHY MD Jun 09, 2019 14:26
[2019-06-09] MEDS: CARVEDILOL 12.5 MG TABLET. PO SCH (16:22)
[2019-06-09] MEDS: ONDANSETRON PF 4 MG/2 ML VIAL. IV PRN ×2 (18:35→21:20)
--- NOTE | 2019-06-09 18:44 | RAD ---
MR#: [id number] Date of Study: 06/09/2019 Ordering Physician: LES MURILLO, Referring Physician: LES MURILLO, Tech: Idalia Hirsch RVT, KATHY APPROVED REPORT Patient Location: IN-PATIENT Indications Uncontrolled HTN Renal Artery Doppler Right Renal Artery Left Renal Arter y Proximal 159.1/36.6 cm/secProximal 237.5/45.2 cm/sec Mid 119.3/33.4 cm/secMid 192.3/37.7 cm/sec Distal 159.1/31.8 cm/secDistal 216.3/43.3 cm/sec Renal/Aorta Ratio 1.00Renal/Aorta Ratio 1.50 Prox. Resistive Index 0.77Prox. Resistive Index 0.81 Mid Resistive Index 0.72Mid Resistive Index 0.80 Distal Resistive Index 0.80Distal Resistive Index 0.80 Aortic Duplex A/PTransverseLongitudinal Proximal Aorta 1.7cm Mid Aorta 1.6cm Distal Aorta 1.5cm Aortic Doppler VelocityWaveform Proximal Aorta 226.7 cm/sec Mid. Aorta 154.7 cm/sec Distal Aorta 142.5 cm/sec Findings Grayscale images of the bilateral kidneys demonstrate cortical hypertrophy. Spectral waveforms and the aorta are mildly elevated but no focal high-grade stenosis is identified. There is diffuse plaque in the aorta without any focal stenosis on colon scale images On the right velocities are within normal limits in the renal arteries. Normal renal to aortic ratios noted. Mildly elevated renal artery velocities on the left side but overall suggestive of a less tyron n 50% stenosis based on criteria. Critical Notification Critical Value: No <Conclusion> 1. No significant renal artery stenosis noted bilaterally. Signed by : Toro Mcknight, Electronically Approved : 06/09/2019 18:44:14
--- NOTE | 2019-06-09 18:51 | RAD ---
MR#: [id number] Date of Study: 06/09/2019 Ordering Physician: LES MURILLO, Referring Physician: LES MURILLO, Tech: Idalia Hirsch RVT,KATHY APPROVED REPORT Patient Location: IN-PATIENT Laterality:Bilateral Indications Bruit Syncope Risk Factors Hypertension: Doppler Spectral Velocity Analysis Right Left pCCA 139/15 cm/spCCA 189/21 cm/s mCCA 133/19 cm/smCCA 95/17 cm/s dCCA 109/19 cm/sdCCA 102/16 cm/s Bulb Bulb 109/17 cm/s ECA 161/13 cm/sECA 183/14 cm/s pICA 99/14 cm/spICA 96/20 cm/s Jorge 66/16 cm/smICA 104/21 cm/s dICA 64/10 cm/sdICA 93/19 cm/s Vert. 62/11 cm/sVert. 63/11 cm/s ICA/CCA 0.71ICA/CCA 0.55 Findings Grayscale images of the carotid vessels demonstrates a moderate to severe plaque at the level of the carotid bulb on the left side. Based on velocity criteria on the right side overall there is 0 to les s than 50% stenosis. Similarly on the left side there is overall 0 to less than 50% stenosis involvin g the internal carotid arteries. The bilateral external carotid arteries demonstrated greater than 50% stenosis. Bilateral vertebral velocities are antegrade. Grossly normal ICA to CCA ratios bilaterally. Critical Notification Critical Value: No <Conclusion> 1. Moderate left greater than right carotid plaque but based on velocity criteria less than 50% steno sis. Signed by : Toro Mcknight, Electronically Approved : 06/09/2019 18:51:18
[2019-06-09] MEDS ORDERED: traZODone 50 MG TABLET. PO SCH (21:00)
--- NOTE | 2019-06-10 00:34 | CONS ---
DATE OF CONSULTATION: 06/09/2019 GASTROENTEROLOGY CONSULTATION REASON FOR CONSULTATION: Rectal bleed. HISTORY OF PRESENT ILLNESS: An 83-year-old female whose past medical history is significant for diverticulosis as well as coronary artery disease, status post bypass surgery, is admitted to [facility] with a near syncopal episode with some rectal bleeding. Denies any pain with change in bowel habits, exotic travel or recent anticoagulation. Prior colonoscopies with ____ have revealed diverticulosis and apparently polyps in the past. She subsequently underwent a bleeding scan, which is unrevealing. Presently is wishing to eat and has had no further bleeding. PAST MEDICAL HISTORY: Diverticulosis, colonic polyps, history of bypass surgery, and CABG. ALLERGIES: None. MEDICATIONS: Include clonidine, metronidazole, Zofran. FAMILY AND SOCIAL HISTORY: She is retired. She does not drink or smoke. FAMILY HISTORY: Noncontributory. REVIEW OF SYSTEMS: As per records. PHYSICAL EXAMINATION: GENERAL: Reveals a well-nourished, well-developed female who is alert, cooperative, in no acute distress. VITAL SIGNS: Temperature is 98.3, pulse 92, respiratory rate is 18, blood pressure is 200/95. HEENT: Normocephalic, atraumatic head. Pupils and extraocular muscles are not tested. Sclerae are anicteric. NECK: Supple. LUNGS: Clear. CARDIOVASCULAR: Reveals an S1, S2 without S3, S4 or appreciable murmur. Well-healed midline sternal incision. ABDOMEN: With a soft abdomen, normal bowel sounds, without appreciable hepatosplenomegaly. EXTREMITIES: Reveals no cyanosis, clubbing or edema. LABORATORY STUDIES: Hemoglobin is 12.7, hematocrit 38.4, white count 10.4, platelet count is 281,000. Sodium 140, potassium 3.1, chloride 103, bicarb is 27, BUN 14, creatinine 0.5, glucose is 136. Lactate 1.3, calcium 8.8. Total bilirubin 0.5, AST 22, ALT of 16, alkaline phosphatase of 88, total protein 6.7, albumin 3.1. Bleeding scan was unrevealing. IMPRESSION: Rectal bleeding, most likely secondary to acute self-limited diverticular bleed. We recommend advancing diet, serial blood counts. If blood counts are stable, we will otherwise consider interval colonoscopy. DOUGLAS LANE MD DR: Jenaro JOB#: [id number] / [id number] NUNU Salgado DO
--- NOTE | 2019-06-10 00:43 | CONS ---
DATE OF CONSULTATION: 06/09/2019 HEMATOLOGY ONCOLOGY CONSULTATION REQUESTING PHYSICIAN: Dr. Maria M Dennison. REASON FOR CONSULTATION: Elevated D-dimer. HISTORY OF PRESENT ILLNESS: The patient is an 83-year-old female who presented to [facility] ER on 06/08/2019 after a near syncopal episode. The patient states that she was in [employer] and she had to go to the bathroom and while attempting a bowel movement, she became lightheaded and subsequently fell to the ground, nauseous and vomiting. She also had intermittent shortness of breath. She had a syncopal episode 1 week prior to this episode. She was seen by her optometric aide. She has now noticed rectal bleeding since she got admitted to the hospital. I discussed with registered nurse who noted a large bowel movement with blood on 06/09/2019. She underwent a CT angiogram of the chest on 06/08/2019 that did not reveal any evidence of pulmonary embolism. GI bleed scan on 06/08/[address] scan of the head on 06/08/2019 revealed small vessel ischemic changes. GI was consulted and continued monitoring of hemoglobin and possible colonoscopy was planned. Cardiology was also consulted and the syncopal episode was thought to be possibly vasovagal. Her D-dimer was elevated at more than 20 on 06/08/2019 with a normal PT, INR and fibrinogen and hence I was consulted for further recommendations. PAST MEDICAL HISTORY: Coronary artery disease, hypertension, hyperlipidemia and osteoarthritis. FAMILY HISTORY: Positive for heart disease. SOCIAL HISTORY: No smoking or alcohol abuse. REVIEW OF SYSTEMS: A 12-point review of system was performed. Pertinent positives are mentioned in the history of present illness. Rest of the system review is negative. PHYSICAL EXAMINATION: GENERAL APPEARANCE: The patient is an 83-year-old female who is in no acute cardiorespiratory distress. VITAL SIGNS: Blood pressure 213/90, temperature 98.3. HEAD: Atraumatic, normocephalic. EYES: No icterus. NECK: Supple. CHEST: Bilaterally symmetrical. HEART: S1, S2 normal. ABDOMEN: Soft, nontender. CENTRAL NERVOUS SYSTEM: No focal deficits. LYMPHATICS: No lymphadenopathy. SKIN: No rashes. PSYCHOLOGIC: Mood and affect are appropriate. LABORATORY DATA: On 06/08/2019, D-dimer more than 20. On 06/09/2019, fibrinogen 395 with INR of 1.0 and PTT 13.2. Hemoglobin 12.7, WBC 13.1, platelet count 281. At the time of admission, there were 5% bands. Creatinine 0.5, calcium 8.8, total protein 0.5, AST 22, ALT 16, alkaline phosphatase 88, albumin 3.1. TSH 0.844. Stool occult blood was positive. IMPRESSION AND PLAN: 1. Elevated D-dimer at more than 20 on 06/08/2019 is due to gastrointestinal bleed. The patient has significant rectal bleeding, which can elevate D-dimer. In addition, D-dimer also goes up with age. There is no evidence of thromboembolic event as the CT angiogram of the chest was negative. There is no evidence of DIC. PT/INR is normal. There is no evidence of hemolysis. There is no clinical evidence of deep venous thrombosis. No clinical signs or symptoms to suggest malignancy. Rectal bleed evaluation ongoing by Gastroenterology. 2. Rectal bleeding. Appreciate GI consultation. I discussed with Dr. Humberto Farrar. 3. Syncope, thought to be vasovagal per Cardiology evaluation. 4. Leukocytosis, mild. WBC is 13.1 on 06/09/2019 and it was 21.6 on 06/08/2019. No evidence of fever. Continue to monitor. BOBBY MURPHY MD DR: SLAVA/loyd JOB#: [id number] / [id number] GRACIELA
[2019-06-10 02:53] LABS: BILIRUBIN,URINE NEGATIVE (NEG); CLARITY,URINE CLEAR; COLOR,URINE AMBER; NITRITE,URINE NEGATIVE (NEG); PROTEIN,URINE NEGATIVE (NEG-TRACE); UROBILINOGEN,URINE 0.2 mg/dL (0.2 mg/dL)
[2019-06-10 03:14] LABS: BACTERIA,URINE FEW /HPF (0-FEW); SQUAMOUS EPITHELIAL CELL,UR MOD /LPF
[2019-06-10 03:26] VITALS: BP 160/68
[2019-06-10 05:00] LABS: BASO % 0 % (0-3); EOS % 0 % (0-3); HEMATOCRIT 37.6 % (36.0-47.0); HEMOGLOBIN 12.3 g/dL (12.0-15.5); LYMPH # 1.7 x10^3/uL (1.0-4.8); LYMPH % 8 % (24-48); MEAN CORPUSCULAR HEMOGLOBIN 30 pg (25-35); MEAN CORPUSCULAR HGB CONC 33 g/dL (31-37); MEAN CORPUSCULAR VOLUME 90 fL (79-100); MONO # 1.5 x10^3/uL (0.0-1.1); MONO % 8 % (0-9); NEUT # 17.3 x10^3/uL (1.8-7.7); NEUT % 84 % (31-73); PLATELET COUNT 269 x10^3/uL (140-400); RED BLOOD COUNT 4.17 x10^6/uL (3.50-5.40); RED CELL DISTRIBUTION WIDTH 14.4 % (11.5-14.5); WHITE BLOOD COUNT 20.6 x10^3/uL (4.0-11.0)
[2019-06-10 05:58] LABS: ALBUMIN 2.8 g/dL (3.4-5.0); ALBUMIN/GLOBULIN RATIO 0.8 (1.0-1.7); CALCIUM 9.3 mg/dL (8.5-10.1); CREATININE 0.6 mg/dL (0.6-1.0); GFR 95.7; POTASSIUM 3.6 mmol/L (3.5-5.1); TOTAL BILIRUBIN 0.6 mg/dL (0.2-1.0); TOTAL PROTEIN 6.5 g/dL (6.4-8.2)
[2019-06-10 07:00] VITALS: BP 189/83
[2019-06-10] MEDS: LOSARTAN POTASSIUM 50 MG TABLET. PO SCH (08:28)
[2019-06-10] MEDS: CARVEDILOL 12.5 MG TABLET. PO SCH ×2 (08:29→17:15)
--- NOTE | 2019-06-10 10:17 | PDOC ---
PROGRESS NOTES Subjective Subjective HPI - f/u of elevated d-dimer ROS- no BM today, no bleeding Objective Objective Vital Signs Date Time Temp Pulse Resp B/P (MAP) Pulse Ox O2 Delivery O2 Flow Rate FiO2 06/10/19 08:29 102 180/70 06/10/19 07:00 98.3 18 99 Room Air 98.3 Intake and Output 06/10/19 07:00 Intake Total 120 ml Output Total 2 ml Balance 118 ml Intake Oral 120 ml Output Urine Total 2 ml # Voids 2 # Bowel Movements 8 Physical Exam Heart: Normal S1, Normal S2 General: Alert, Oriented X3 Lungs: Clear to auscultation Neuro: Normal speech Psych/Mental Status: Mental status NL Assessment Assessment Problems Medical Problems: (1) Diverticulitis Status: Acute (2) Near syncope Status: Acute IMPRESSION AND PLAN: 1. Elevated D-dimer at more than 20 on 06/08/2019 is due to gastrointestinal bleed. The patient has significant rectal bleeding, which can elevate D-dimer. In addition, D-dimer also goes up with age. There is no evidence of thromboembolic event as the CT angiogram of the chest was negative. There is no evidence of DIC. PT/INR is normal. There is no evidence of hemolysis. There is no clinical evidence of deep venous thrombosis. No clinical signs or symptoms to suggest malignancy. Rectal bleed evaluation ongoing by Gastroenterology. 2. Rectal bleeding. Appreciate GI consultation. I discussed with Dr. Humberto Farrar. Hb normal at 12.3. 3. Syncope, thought to be vasovagal per Cardiology evaluation. 4. Leukocytosis, mild. WBC is 13.1 on 06/09/2019 and it was 21.6 on 06/08/2019. No evidence of fever. Continue to monitor. WBC 20.6 on 06/10/19. Comment Review of Relevant I have reviewed the following items chel (where applicable) has been applied. Labs Laboratory Tests Test 06/08/19 19:10 06/08/19 20:10 06/09/19 00:20 06/09/19 04:41 Stool Occult Blood Positive (NEG) White Blood Count 21.6 x10^3/uL (4.0-11.0) 13.1 x10^3/uL (4.0-11.0) Red Blood Count 4.29 x10^6/uL (3.50-5.40) 4.27 x10^6/uL (3.50-5.40) Hemoglobin 12.7 g/dL (12.0-15.5) 12.4 g/dL (12.0-15.5) 12.7 g/dL (12.0-15.5) Hematocrit 38.9 % (36.0-47.0) 38.3 % (36.0-47.0) 38.4 % (36.0-47.0) Mean Corpuscular Volume 91 fL (79-100) 90 fL (79-100) Mean Corpuscular Hemoglobin 30 pg (25-35) 30 pg (25-35) Mean Corpuscular Hemoglobin Concent 33 g/dL (31-37) 33 g/dL (31-37) Red Cell Distribution Width 14.5 % (11.5-14.5) 14.2 % (11.5-14.5) Platelet Count 297 x10^3/uL (140-400) 281 x10^3/uL (140-400) Neutrophils (%) (Auto) 83 % (31-73) 88 % (31-73) Lymphocytes (%) (Auto) 7 % (24-48) 7 % (24-48) Monocytes (%) (Auto) 8 % (0-9) 5 % (0-9) Eosinophils (%) (Auto) 1 % (0-3) 0 % (0-3) Basophils (%) (Auto) 1 % (0-3) 0 % (0-3) Neutrophils # (Auto) 18.0 x10^3/uL (1.8-7.7) 11.5 x10^3/uL (1.8-7.7) Lymphocytes # (Auto) 1.6 x10^3/uL (1.0-4.8) 0.9 x10^3/uL (1.0-4.8) Monocytes # (Auto) 1.8 x10^3/uL (0.0-1.1) 0.7 x10^3/uL (0.0-1.1) Eosinophils # (Auto) 0.1 x10^3/uL (0.0-0.7) 0.0 x10^3/uL (0.0-0.7) Basophils # (Auto) 0.1 x10^3/uL (0.0-0.2) 0.0 x10^3/uL (0.0-0.2) Segmented Neutrophils % 82 % (35-66) Band Neutrophils % 5 % (0-9) Lymphocytes % 3 % (24-48) Monocytes % 9 % (0-10) Eosinophils % 1 % (0-5) Platelet Estimate Adequate (ADEQUATE) D-Dimer (Jessica) > 20.00 ug/mlFEU Sodium Level 142 mmol/L (136-145) 140 mmol/L (136-145) Potassium Level 3.6 mmol/L (3.5-5.1) 3.1 mmol/L (3.5-5.1) Chloride Level 104 mmol/L (98-107) 103 mmol/L (98-107) Carbon Dioxide Level 30 mmol/L (21-32) 27 mmol/L (21-32) Anion Gap 8 (6-14) 10 (6-14) Blood Urea Nitrogen 17 mg/dL (7-20) 14 mg/dL (7-20) Creatinine 0.9 mg/dL (0.6-1.0) 0.5 mg/dL (0.6-1.0) Estimated GFR (Cockcroft-Gault) 59.9 118.1 BUN/Creatinine Ratio 19 (6-20) 28 (6-20) Glucose Level 132 mg/dL (70-99) 136 mg/dL (70-99) Lactic Acid Level 1.3 mmol/L (0.4-2.0) Calcium Level 9.7 mg/dL (8.5-10.1) 8.8 mg/dL (8.5-10.1) Magnesium Level 2.5 mg/dL (1.8-2.4) Total Bilirubin 0.5 mg/dL (0.2-1.0) 0.5 mg/dL (0.2-1.0) Aspartate Amino Transf (AST/SGOT) 24 U/L (15-37) 22 U/L (15-37) Alanine Aminotransferase (ALT/SGPT) 20 U/L (14-59) 16 U/L (14-59) Alkaline Phosphatase 94 U/L (46-116) 88 U/L (46-116) Troponin I Quantitative < 0.017 ng/mL (0.000-0.055) 0.023 ng/mL (0.000-0.055) Total Protein 7.2 g/dL (6.4-8.2) 6.7 g/dL (6.4-8.2) Albumin 3.4 g/dL (3.4-5.0) 3.1 g/dL (3.4-5.0) Albumin/Globulin Ratio 0.9 (1.0-1.7) 0.9 (1.0-1.7) Prothrombin Time 13.2 SEC (11.7-14.0) Prothromb Time International Ratio 1.0 (0.8-1.1) Fibrinogen 395 mg/dL (200-440) Triglycerides Level 50 mg/dL (0-150) Cholesterol Level 114 mg/dL (0-200) LDL Cholesterol, Calculated 49 mg/dL (0-100) VLDL Cholesterol, Calculated 10 mg/dL (0-40) Non-HDL Cholesterol Calculated 59 mg/dL (0-129) HDL Cholesterol 55 mg/dL (40-60) Cholesterol/HDL Ratio 2.1 Thyroid Stimulating Hormone (TSH) 0.844 uIU/mL (0.358-3.74) Test 06/10/19 02:30 06/10/19 03:40 Urine Collection Type Unknown Urine Color Nadia Urine Clarity Clear Urine pH 6.0 Urine Specific [place] 1.015 Urine Protein Negative mg/dL (NEG-TRACE) Urine Glucose (UA) Negative mg/dL (NEG) Urine Ketones (Stick) Trace mg/dL (NEG) Urine Blood Negative (NEG) Urine Nitrite Negative (NEG) Urine Bilirubin Negative (NEG) Urine Urobilinogen Dipstick 0.2 mg/dL (0.2 mg/dL) Urine Leukocyte Esterase Trace (NEG) Urine RBC 3-5 /HPF (0-2) Urine WBC 5-10 /HPF (0-4) Urine Squamous Epithelial Cells Mod /LPF Urine Bacteria Few /HPF (0-FEW) White Blood Count 20.6 x10^3/uL (4.0-11.0) Red Blood Count 4.17 x10^6/uL (3.50-5.40) Hemoglobin 12.3 g/dL (12.0-15.5) Hematocrit 37.6 % (36.0-47.0) Mean Corpuscular Volume 90 fL (79-100) Mean Corpuscular Hemoglobin 30 pg (25-35) Mean Corpuscular Hemoglobin Concent 33 g/dL (31-37) Red Cell Distribution Width 14.4 % (11.5-14.5) Platelet Count 269 x10^3/uL (140-400) Neutrophils (%) (Auto) 84 % (31-73) Lymphocytes (%) (Auto) 8 % (24-48) Monocytes (%) (Auto) 8 % (0-9) Eosinophils (%) (Auto) 0 % (0-3) Basophils (%) (Auto) 0 % (0-3) Neutrophils # (Auto) 17.3 x10^3/uL (1.8-7.7) Lymphocytes # (Auto) 1.7 x10^3/uL (1.0-4.8) Monocytes # (Auto) 1.5 x10^3/uL (0.0-1.1) Eosinophils # (Auto) 0.0 x10^3/uL (0.0-0.7) Basophils # (Auto) 0.0 x10^3/uL (0.0-0.2) Sodium Level 142 mmol/L (136-145) Potassium Level 3.6 mmol/L (3.5-5.1) Chloride Level 105 mmol/L (98-107) Carbon Dioxide Level 29 mmol/L (21-32) Anion Gap 8 (6-14) Blood Urea Nitrogen 11 mg/dL (7-20) Creatinine 0.6 mg/dL (0.6-1.0) Estimated GFR (Cockcroft-Gault) 95.7 BUN/Creatinine Ratio 18 (6-20) Glucose Level 99 mg/dL (70-99) Calcium Level 9.3 mg/dL (8.5-10.1) Total Bilirubin 0.6 mg/dL (0.2-1.0) Aspartate Amino Transf (AST/SGOT) 20 U/L (15-37) Alanine Aminotransferase (ALT/SGPT) 13 U/L (14-59) Alkaline Phosphatase 86 U/L (46-116) Total Protein 6.5 g/dL (6.4-8.2) Albumin 2.8 g/dL (3.4-5.0) Albumin/Globulin Ratio 0.8 (1.0-1.7) Laboratory Tests Test 06/10/19 02:30 06/10/19 03:40 Urine Collection Type Unknown Urine Color Nadia Urine Clarity Clear Urine pH 6.0 Urine Specific [place] 1.015 Urine Protein Negative mg/dL (NEG-TRACE) Urine Glucose (UA) Negative mg/dL (NEG) Urine Ketones (Stick) Trace mg/dL (NEG) Urine Blood Negative (NEG) Urine Nitrite Negative (NEG) Urine Bilirubin Negative (NEG) Urine Urobilinogen Dipstick 0.2 mg/dL (0.2 mg/dL) Urine Leukocyte Esterase Trace (NEG) Urine RBC 3-5 /HPF (0-2) Urine WBC 5-10 /HPF (0-4) Urine Squamous Epithelial Cells Mod /LPF Urine Bacteria Few /HPF (0-FEW) White Blood Count 20.6 x10^3/uL (4.0-11.0) Red Blood Count 4.17 x10^6/uL (3.50-5.40) Hemoglobin 12.3 g/dL (12.0-15.5) Hematocrit 37.6 % (36.0-47.0) Mean Corpuscular Volume 90 fL (79-100) Mean Corpuscular Hemoglobin 30 pg (25-35) Mean Corpuscular Hemoglobin Concent 33 g/dL (31-37) Red Cell Distribution Width 14.4 % (11.5-14.5) Platelet Count 269 x10^3/uL (140-400) Neutrophils (%) (Auto) 84 % (31-73) Lymphocytes (%) (Auto) 8 % (24-48) Monocytes (%) (Auto) 8 % (0-9) Eosinophils (%) (Auto) 0 % (0-3) Basophils (%) (Auto) 0 % (0-3) Neutrophils # (Auto) 17.3 x10^3/uL (1.8-7.7) Lymphocytes # (Auto) 1.7 x10^3/uL (1.0-4.8) Monocytes # (Auto) 1.5 x10^3/uL (0.0-1.1) Eosinophils # (Auto) 0.0 x10^3/uL (0.0-0.7) Basophils # (Auto) 0.0 x10^3/uL (0.0-0.2) Sodium Level 142 mmol/L (136-145) Potassium Level 3.6 mmol/L (3.5-5.1) Chloride Level 105 mmol/L (98-107) Carbon Dioxide Level 29 mmol/L (21-32) Anion Gap 8 (6-14) Blood Urea Nitrogen 11 mg/dL (7-20) Creatinine 0.6 mg/dL (0.6-1.0) Estimated GFR (Cockcroft-Gault) 95.7 BUN/Creatinine Ratio 18 (6-20) Glucose Level 99 mg/dL (70-99) Calcium Level 9.3 mg/dL (8.5-10.1) Total Bilirubin 0.6 mg/dL (0.2-1.0) Aspartate Amino Transf (AST/SGOT) 20 U/L (15-37) Alanine Aminotransferase (ALT/SGPT) 13 U/L (14-59) Alkaline Phosphatase 86 U/L (46-116) Total Protein 6.5 g/dL (6.4-8.2) Albumin 2.8 g/dL (3.4-5.0) Albumin/Globulin Ratio 0.8 (1.0-1.7) Medications Current Medications Ondansetron HCl (Zofran) 4 mg 1X ONCE IV Last administered on 06/08/19at 20:27; Start 06/08/19 at 20:30; Stop 06/08/19 at 20:31; Status DC Metronidazole 100 ml @ 100 mls/hr Q8HRS IV Last administered on 06/10/19at 06:07; Start 06/09/19 at 06:00 Ciprofloxacin/ Dextrose 200 ml @ 200 mls/hr BID ONCE IV Last administered on 06/09/19at 10:06; Start 06/09/19 at 09:00; Stop 06/09/19 at 09:59; Status DC Ondansetron HCl (Zofran) 4 mg PRN Q8HRS PRN IV NAUSEA/VOMITING Last administered on 06/08/19at 23:16; Start 06/08/19 at 21:15; Stop 06/09/19 at 01:41; Status DC Morphine Sulfate (Morphine Sulfate) 2 mg PRN Q2HR PRN IV PAIN Last administered on 06/09/19at 21:22; Start 06/08/19 at 21:15; Stop 06/09/19 at 21:14; Status DC Dextrose/Sodium Chloride 1,000 ml @ 75 mls/hr 1X ONCE IV Last administered on 06/08/19at 22:34; Start 06/08/19 at 21:30; Stop 06/09/19 at 10:49; Status DC Ciprofloxacin/ Dextrose 200 ml @ 200 mls/hr ONCE ONCE IV Last administered on 06/08/19at 22:34; Start 06/08/19 at 21:45; Stop 06/08/19 at 22:44; Status DC Metronidazole 100 ml @ 100 mls/hr ONCE ONCE IV Last administered on 06/09/19at 00:06; Start 06/08/19 at 21:45; Stop 06/08/19 at 22:44; Status DC Iohexol (Omnipaque 350 Mg/ml) 100 ml 1X ONCE IV Last administered on 06/08/19at 22:12; Start 06/08/19 at 21:45; Stop 06/08/19 at 21:46; Status DC Info (CONTRAST GIVEN -- Rx MONITORING) 1 each PRN DAILY PRN MC SEE COMMENTS; Start 06/08/19 at 21:45; Stop 06/10/19 at 21:44 Heparin Sodium (Porcine) (HEPARIN for NUC MED) 100 unit 1X ONCE IV ; Start 06/08/19 at 22:15; Stop 06/08/19 at 22:16; Status DC Ondansetron HCl (Zofran) 4 mg PRN Q4HRS PRN IV NAUSEA/VOMITING, 1ST CHOICE Last administered on 06/09/19at 05:07; Start 06/09/19 at 01:45; Stop 06/09/19 at 18:32; Status DC Amlodipine Besylate (Norvasc) 10 mg DAILY PO ; Start 06/09/19 at 09:00; Stop 06/09/19 at 02:12; Status DC Amlodipine Besylate (Norvasc) 10 mg 1X ONCE PO ; Start 06/09/19 at 01:45; Stop 06/09/19 at 02:12; Status DC Clonidine HCl (Catapres) 0.1 mg TID PO ; Start 06/09/19 at 09:00; Stop 06/09/19 at 12:58; Status DC Clonidine HCl (Catapres) 0.1 mg 1X ONCE PO ; Start 06/09/19 at 02:15; Stop 06/09/19 at 02:16; Status DC Prochlorperazine Edisylate (Compazine) 10 mg PRN Q8HRS PRN IV NAUSEA/VOMITING, 2ND CHOICE; Start 06/09/19 at 02:15 Acetaminophen (Tylenol) 650 mg PRN Q6HRS PRN PO headache Last administered on 06/09/19 13:29; Start 06/09/19 at 04:45 Potassium Chloride (Klor-Con) 40 meq 1X ONCE PO Last administered on 06/09/19at 13:28; Start 06/09/19 at 11:45; Stop 06/09/19 at 11:46; Status DC Carvedilol (Coreg) 25 mg BIDWMEALS PO Last administered on 06/10/19 08:29; Start 06/09/19 at 17:00 Losartan Potassium (Cozaar) 50 mg DAILY PO Last administered on 06/10/19 08:28; Start 06/09/19 at 14:00 Hydralazine HCl (Apresoline Inj) 10 mg PRN Q4HRS PRN IVP ELEVATED BP, SEE COMMENTS; Start 06/09/19 at 13:00; Stop 06/09/19 at 18:32; Status DC Hydralazine HCl (Apresoline Inj) 10 mg 1X ONCE IVP Last administered on 06/09/19at 13:28; Start 06/09/19 at 13:00; Stop 06/09/19 at 13:05; Status DC Hydralazine HCl (Apresoline Inj) 10 mg PRN Q2HR PRN IVP ELEVATED BP, SEE COMMENTS Last administered on 06/09/19at 21:21; Start 06/09/19 at 18:30 Ondansetron HCl (Zofran) 4 mg PRN Q8HRS PRN IV NAUSEA/VOMITING, 1ST CHOICE Last administered on 06/09/19 21:20; Start 06/09/19 at 18:30 Trazodone HCl (Desyrel) 50 mg QHS PO Last administered on 06/09/19at 21:23; Start 06/09/19 at 21:00 Vitals/I & O Vital Sign - Last 24 Hours 06/09/19 06/09/19 06/09/19 06/09/19 11:00 13:16 13:16 13:16 Temp 98.3 98.3 Pulse 92 Resp 18 B/P (MAP) 200/95 (130) 174/90 (118) 193/93 (126) 213/90 (131) Pulse Ox 98 O2 Delivery Room Air 06/09/19 06/09/19 06/09/19 06/09/19 13:28 14:01 15:00 16:22 Temp 98.2 98.2 Pulse 92 92 98 92 Resp 18 B/P (MAP) 213/90 213/90 182/75 (110) 213/90 Pulse Ox 98 O2 Delivery Room Air 06/09/19 06/09/19 06/09/19 06/09/19 19:20 20:00 21:21 21:22 Temp 98.1 98.1 Pulse 90 90 Resp 16 B/P (MAP) 184/81 (115) 184/81 Pulse Ox 99 O2 Delivery Room Air Room Air Room Air 06/09/19 06/10/19 06/10/19 06/10/19 23:34 03:26 07:00 08:28 Temp 98.4 98.1 98.3 98.4 98.1 98.3 Pulse 92 104 108 102 Resp 16 18 18 B/P (MAP) 136/54 (81) 160/68 (98) 189/83 (118) 180/70 Pulse Ox 96 97 99 O2 Delivery Room Air Room Air Room Air 06/10/19 08:29 Pulse 102 B/P (MAP) 180/70 Intake and Output 06/09/19 06/09/19 06/10/19 15:00 23:00 07:00 Intake Total 0 ml 120 ml 0 ml Output Total 2 ml Balance -2 ml 120 ml 0 ml BOBBY MURPHY MD Jun 10, 2019 10:17
[2019-06-10 11:00] VITALS: BP 167/83
[2019-06-10] MEDS ORDERED: amLODIPine BESYLATE 5 MG TABLET PO ONE (11:30)
[2019-06-10] MEDS ORDERED: METR500T PO (11:50)
[2019-06-10] MEDS ORDERED: AMLO2.5T2 PO (11:52)
[2019-06-10] MEDS ORDERED: LOSA-73 PO (11:52)
[2019-06-10] MEDS ORDERED: CARV12.511 PO (11:52)
--- NOTE | 2019-06-10 11:54 | SNU/HH DC ---
DISCHARGE WITH HOME HEALTH DISCHARGE INFORMATION: Discharge Date: Jun 10, 2019 Final Diagnosis: Problems Medical Problems: (1) Diverticulitis Status: Acute (2) Near syncope Status: Acute Condition on Discharge: Stable HOME HEALTH: Face to Face: I certify this patient is under my care and that I, had a face to face encounter that meets the physician face to face encounter requirements with this patient on 06/10. Medical Complications: HTN, Other Fdc For: Medication Management RN For Eval/Treatment: Yes Physical Therapy For: Evalulation/Treatment Occupational Therapy For: Evaluation/Treatment Pt Meets Homebound Status: Poor coordination w/ amb., Fatigue w/ amb. POST DISCHARGE ORDERS: DIET AFTER DISCHARGE: Cardiac CHECKS AFTER DISCHARGE: Checks after discharge: Check blood press - daily Comment: orthostatic blood pressures QOD FOLLOW-UP: Follow up with: primary care jun 12 CERTIFICATION STATEMENT: Certification Statement: Certification Statement: Based on the above finding, I certify that this patient is confined to the home and needs intermittent custodial care, physical therapy and/or speech therapy, or continues to need occupational therapy.~ This patient is under my care, and I have initiated the establishment of the plan of care.~ This patient will be followed by myself or a community physician who will periodically review the plan of care. ALEXEY DEMARCO MD Jun 10, 2019 11:54
--- NOTE | 2019-06-10 12:47 | PDOC ---
G I PROGRESS NOTE Subjective No bleeding today. Some LQ cramps. Physical Exam Lungs clear. RRR Abdomen soft, not distended. Review of Relevant I have reviewed the following items chel (where applicable) has been applied. Labs Laboratory Tests Test 06/08/19 19:10 06/08/19 20:10 06/09/19 00:20 06/09/19 04:41 Stool Occult Blood Positive (NEG) White Blood Count 21.6 x10^3/uL (4.0-11.0) 13.1 x10^3/uL (4.0-11.0) Red Blood Count 4.29 x10^6/uL (3.50-5.40) 4.27 x10^6/uL (3.50-5.40) Hemoglobin 12.7 g/dL (12.0-15.5) 12.4 g/dL (12.0-15.5) 12.7 g/dL (12.0-15.5) Hematocrit 38.9 % (36.0-47.0) 38.3 % (36.0-47.0) 38.4 % (36.0-47.0) Mean Corpuscular Volume 91 fL (79-100) 90 fL (79-100) Mean Corpuscular Hemoglobin 30 pg (25-35) 30 pg (25-35) Mean Corpuscular Hemoglobin Concent 33 g/dL (31-37) 33 g/dL (31-37) Red Cell Distribution Width 14.5 % (11.5-14.5) 14.2 % (11.5-14.5) Platelet Count 297 x10^3/uL (140-400) 281 x10^3/uL (140-400) Neutrophils (%) (Auto) 83 % (31-73) 88 % (31-73) Lymphocytes (%) (Auto) 7 % (24-48) 7 % (24-48) Monocytes (%) (Auto) 8 % (0-9) 5 % (0-9) Eosinophils (%) (Auto) 1 % (0-3) 0 % (0-3) Basophils (%) (Auto) 1 % (0-3) 0 % (0-3) Neutrophils # (Auto) 18.0 x10^3/uL (1.8-7.7) 11.5 x10^3/uL (1.8-7.7) Lymphocytes # (Auto) 1.6 x10^3/uL (1.0-4.8) 0.9 x10^3/uL (1.0-4.8) Monocytes # (Auto) 1.8 x10^3/uL (0.0-1.1) 0.7 x10^3/uL (0.0-1.1) Eosinophils # (Auto) 0.1 x10^3/uL (0.0-0.7) 0.0 x10^3/uL (0.0-0.7) Basophils # (Auto) 0.1 x10^3/uL (0.0-0.2) 0.0 x10^3/uL (0.0-0.2) Segmented Neutrophils % 82 % (35-66) Band Neutrophils % 5 % (0-9) Lymphocytes % 3 % (24-48) Monocytes % 9 % (0-10) Eosinophils % 1 % (0-5) Platelet Estimate Adequate (ADEQUATE) D-Dimer (Jessica) > 20.00 ug/mlFEU Sodium Level 142 mmol/L (136-145) 140 mmol/L (136-145) Potassium Level 3.6 mmol/L (3.5-5.1) 3.1 mmol/L (3.5-5.1) Chloride Level 104 mmol/L (98-107) 103 mmol/L (98-107) Carbon Dioxide Level 30 mmol/L (21-32) 27 mmol/L (21-32) Anion Gap 8 (6-14) 10 (6-14) Blood Urea Nitrogen 17 mg/dL (7-20) 14 mg/dL (7-20) Creatinine 0.9 mg/dL (0.6-1.0) 0.5 mg/dL (0.6-1.0) Estimated GFR (Cockcroft-Gault) 59.9 118.1 BUN/Creatinine Ratio 19 (6-20) 28 (6-20) Glucose Level 132 mg/dL (70-99) 136 mg/dL (70-99) Lactic Acid Level 1.3 mmol/L (0.4-2.0) Calcium Level 9.7 mg/dL (8.5-10.1) 8.8 mg/dL (8.5-10.1) Magnesium Level 2.5 mg/dL (1.8-2.4) Total Bilirubin 0.5 mg/dL (0.2-1.0) 0.5 mg/dL (0.2-1.0) Aspartate Amino Transf (AST/SGOT) 24 U/L (15-37) 22 U/L (15-37) Alanine Aminotransferase (ALT/SGPT) 20 U/L (14-59) 16 U/L (14-59) Alkaline Phosphatase 94 U/L (46-116) 88 U/L (46-116) Troponin I Quantitative < 0.017 ng/mL (0.000-0.055) 0.023 ng/mL (0.000-0.055) Total Protein 7.2 g/dL (6.4-8.2) 6.7 g/dL (6.4-8.2) Albumin 3.4 g/dL (3.4-5.0) 3.1 g/dL (3.4-5.0) Albumin/Globulin Ratio 0.9 (1.0-1.7) 0.9 (1.0-1.7) Prothrombin Time 13.2 SEC (11.7-14.0) Prothromb Time International Ratio 1.0 (0.8-1.1) Fibrinogen 395 mg/dL (200-440) Triglycerides Level 50 mg/dL (0-150) Cholesterol Level 114 mg/dL (0-200) LDL Cholesterol, Calculated 49 mg/dL (0-100) VLDL Cholesterol, Calculated 10 mg/dL (0-40) Non-HDL Cholesterol Calculated 59 mg/dL (0-129) HDL Cholesterol 55 mg/dL (40-60) Cholesterol/HDL Ratio 2.1 Thyroid Stimulating Hormone (TSH) 0.844 uIU/mL (0.358-3.74) Test 06/10/19 02:30 06/10/19 03:40 Urine Collection Type Unknown Urine Color Nadia Urine Clarity Clear Urine pH 6.0 Urine Specific [place] 1.015 Urine Protein Negative mg/dL (NEG-TRACE) Urine Glucose (UA) Negative mg/dL (NEG) Urine Ketones (Stick) Trace mg/dL (NEG) Urine Blood Negative (NEG) Urine Nitrite Negative (NEG) Urine Bilirubin Negative (NEG) Urine Urobilinogen Dipstick 0.2 mg/dL (0.2 mg/dL) Urine Leukocyte Esterase Trace (NEG) Urine RBC 3-5 /HPF (0-2) Urine WBC 5-10 /HPF (0-4) Urine Squamous Epithelial Cells Mod /LPF Urine Bacteria Few /HPF (0-FEW) White Blood Count 20.6 x10^3/uL (4.0-11.0) Red Blood Count 4.17 x10^6/uL (3.50-5.40) Hemoglobin 12.3 g/dL (12.0-15.5) Hematocrit 37.6 % (36.0-47.0) Mean Corpuscular Volume 90 fL (79-100) Mean Corpuscular Hemoglobin 30 pg (25-35) Mean Corpuscular Hemoglobin Concent 33 g/dL (31-37) Red Cell Distribution Width 14.4 % (11.5-14.5) Platelet Count 269 x10^3/uL (140-400) Neutrophils (%) (Auto) 84 % (31-73) Lymphocytes (%) (Auto) 8 % (24-48) Monocytes (%) (Auto) 8 % (0-9) Eosinophils (%) (Auto) 0 % (0-3) Basophils (%) (Auto) 0 % (0-3) Neutrophils # (Auto) 17.3 x10^3/uL (1.8-7.7) Lymphocytes # (Auto) 1.7 x10^3/uL (1.0-4.8) Monocytes # (Auto) 1.5 x10^3/uL (0.0-1.1) Eosinophils # (Auto) 0.0 x10^3/uL (0.0-0.7) Basophils # (Auto) 0.0 x10^3/uL (0.0-0.2) Sodium Level 142 mmol/L (136-145) Potassium Level 3.6 mmol/L (3.5-5.1) Chloride Level 105 mmol/L (98-107) Carbon Dioxide Level 29 mmol/L (21-32) Anion Gap 8 (6-14) Blood Urea Nitrogen 11 mg/dL (7-20) Creatinine 0.6 mg/dL (0.6-1.0) Estimated GFR (Cockcroft-Gault) 95.7 BUN/Creatinine Ratio 18 (6-20) Glucose Level 99 mg/dL (70-99) Calcium Level 9.3 mg/dL (8.5-10.1) Total Bilirubin 0.6 mg/dL (0.2-1.0) Aspartate Amino Transf (AST/SGOT) 20 U/L (15-37) Alanine Aminotransferase (ALT/SGPT) 13 U/L (14-59) Alkaline Phosphatase 86 U/L (46-116) Total Protein 6.5 g/dL (6.4-8.2) Albumin 2.8 g/dL (3.4-5.0) Albumin/Globulin Ratio 0.8 (1.0-1.7) Laboratory Tests Test 06/10/19 02:30 06/10/19 03:40 Urine Collection Type Unknown Urine Color Nadia Urine Clarity Clear Urine pH 6.0 Urine Specific [place] 1.015 Urine Protein Negative mg/dL (NEG-TRACE) Urine Glucose (UA) Negative mg/dL (NEG) Urine Ketones (Stick) Trace mg/dL (NEG) Urine Blood Negative (NEG) Urine Nitrite Negative (NEG) Urine Bilirubin Negative (NEG) Urine Urobilinogen Dipstick 0.2 mg/dL (0.2 mg/dL) Urine Leukocyte Esterase Trace (NEG) Urine RBC 3-5 /HPF (0-2) Urine WBC 5-10 /HPF (0-4) Urine Squamous Epithelial Cells Mod /LPF Urine Bacteria Few /HPF (0-FEW) White Blood Count 20.6 x10^3/uL (4.0-11.0) Red Blood Count 4.17 x10^6/uL (3.50-5.40) Hemoglobin 12.3 g/dL (12.0-15.5) Hematocrit 37.6 % (36.0-47.0) Mean Corpuscular Volume 90 fL (79-100) Mean Corpuscular Hemoglobin 30 pg (25-35) Mean Corpuscular Hemoglobin Concent 33 g/dL (31-37) Red Cell Distribution Width 14.4 % (11.5-14.5) Platelet Count 269 x10^3/uL (140-400) Neutrophils (%) (Auto) 84 % (31-73) Lymphocytes (%) (Auto) 8 % (24-48) Monocytes (%) (Auto) 8 % (0-9) Eosinophils (%) (Auto) 0 % (0-3) Basophils (%) (Auto) 0 % (0-3) Neutrophils # (Auto) 17.3 x10^3/uL (1.8-7.7) Lymphocytes # (Auto) 1.7 x10^3/uL (1.0-4.8) Monocytes # (Auto) 1.5 x10^3/uL (0.0-1.1) Eosinophils # (Auto) 0.0 x10^3/uL (0.0-0.7) Basophils # (Auto) 0.0 x10^3/uL (0.0-0.2) Sodium Level 142 mmol/L (136-145) Potassium Level 3.6 mmol/L (3.5-5.1) Chloride Level 105 mmol/L (98-107) Carbon Dioxide Level 29 mmol/L (21-32) Anion Gap 8 (6-14) Blood Urea Nitrogen 11 mg/dL (7-20) Creatinine 0.6 mg/dL (0.6-1.0) Estimated GFR (Cockcroft-Gault) 95.7 BUN/Creatinine Ratio 18 (6-20) Glucose Level 99 mg/dL (70-99) Calcium Level 9.3 mg/dL (8.5-10.1) Total Bilirubin 0.6 mg/dL (0.2-1.0) Aspartate Amino Transf (AST/SGOT) 20 U/L (15-37) Alanine Aminotransferase (ALT/SGPT) 13 U/L (14-59) Alkaline Phosphatase 86 U/L (46-116) Total Protein 6.5 g/dL (6.4-8.2) Albumin 2.8 g/dL (3.4-5.0) Albumin/Globulin Ratio 0.8 (1.0-1.7) Hemoglobin remaining stable. Vitals/I & O Vital Sign - Last 24 Hours 06/09/19 06/09/19 06/09/19 06/09/19 13:16 13:16 13:16 13:28 Pulse 92 B/P (MAP) 174/90 (118) 193/93 (126) 213/90 (131) 213/90 06/09/19 06/09/19 06/09/19 06/09/19 14:01 15:00 16:22 19:20 Temp 98.2 98.1 98.2 98.1 Pulse 92 98 92 90 Resp 18 16 B/P (MAP) 213/90 182/75 (110) 213/90 184/81 (115) Pulse Ox 98 99 O2 Delivery Room Air Room Air 06/09/19 06/09/19 06/09/19 06/09/19 20:00 21:21 21:22 23:34 Temp 98.4 98.4 Pulse 90 92 Resp 16 B/P (MAP) 184/81 136/54 (81) Pulse Ox 96 O2 Delivery Room Air Room Air Room Air 06/10/19 06/10/19 06/10/19 06/10/19 03:26 07:00 08:28 08:29 Temp 98.1 98.3 98.1 98.3 Pulse 104 108 102 102 Resp 18 18 B/P (MAP) 160/68 (98) 189/83 (118) 180/70 180/70 Pulse Ox 97 99 O2 Delivery Room Air Room Air 06/10/19 11:00 Temp 98.0 98.0 Pulse 73 Resp 18 B/P (MAP) 167/83 (111) Pulse Ox 98 O2 Delivery Room Air Intake and Output 06/09/19 06/09/19 06/10/19 15:00 23:00 07:00 Intake Total 0 ml 120 ml 0 ml Output Total 2 ml Balance -2 ml 120 ml 0 ml Problem List Problems Medical Problems: (1) Diverticulitis Status: Acute (2) Near syncope Status: Acute Assessment Hematochezia, apparently ceased. Diverticular? Given occurred after near- syncope, major differential would be non-occlusive ischemic colitis. Plan of Care: Continue current Tx, Mgmt Plan of Care Note If remains free of bleeding, OK to consider discharge. No ASA or AC's for a week. ZACK ROPER MD Jun 10, 2019 12:47
[2019-06-10 14:11] VITALS: BP 148/69
--- NOTE | 2019-06-10 14:45 | NUR ---
Non administered amlodipine, patient refused med. She had history of swelling in her legs/feet, MD notified. Med scanned and unable to undo charted med.
[2019-06-10 17:15] VITALS: BP 148/69
--- NOTE | 2019-06-10 18:31 | NUR ---
Discharge Note: [facility] [address] Discharge instructions and discharge home medications reviewed with patient and patient's daughter and a copy given. All questions have been answered and understanding verbalized. The following instructions and handouts were given: Take Flagyl 3 x a day as instructed. Low fiber diet then high fiber diet when diverticulitis is getting better. Watch out for severe abdominal pain, bloody stools, fever. Call MD Follow up with PCP in a week. Handouts on diverticulitis and hypertension given. Discontinued lines and drains: peripheral IV intact, patient tolerated removal, no complications noted. Patient discharged to home with home health services via wheelchair accompanied by family members at 1820.
== END 2019-06-10 18:15 | disposition home health service (06) | DRG 378 ==
LOC: ER 18:51 → 6 SOUTH 20:54
PROVIDERS: ADMIT Internal Medicine; ATTEND Internal Medicine
DX: K57.91 Diverticulosis of intestine, part unspecified, without perforation or abscess with bleeding (principal); N39.0 Urinary tract infection, site not specified; E78.5 Hyperlipidemia, unspecified; E87.6 Hypokalemia; I10 Essential (primary) hypertension; I16.0 Hypertensive urgency; I25.10 Atherosclerotic heart disease of native coronary artery without angina pectoris; Z82.49 Family history of ischemic heart disease and other diseases of the circulatory system; K44.9 Diaphragmatic hernia without obstruction or gangrene; Z87.19 Personal history of other diseases of the digestive system; Z90.710 Acquired absence of both cervix and uterus; M19.90 Unspecified osteoarthritis, unspecified site; Z95.1 Presence of aortocoronary bypass graft; Z95.5 Presence of coronary angioplasty implant and graft; Z79.899 Other long term (current) drug therapy
CPT/HCPCS: 36415; 70450; 71275; 76770; 78278; 80053; 80061; 81001; 82274; 83605; 83735; 84443; 84484; 85007; 85014; 85018; 85025; 85379; 85384; 85610; 86850; 86900; 86901; 93005; 93880; 96374; A9560; J0360; J0744; J2270; J2405; J3490; Q9967; 99285-25; G0378